=== PATIENT | female | born 1970 | race Caucasian/White ===

== ENCOUNTER 2018-06-17 15:08 | Emergency (ER) | payer BC, OTHER ==
[~2018-06-17] VITALS: Ht 170.2 cm; Wt 88.5 kg
--- NOTE | 2018-06-17 15:59 | NUR ---
Patient discharged to home in stable conditon. Written and verbal after care instructions given. Patient verbalizes understanding of instructions.PT WALKS IN STEADY GAIT. PT DENIES ANY DIZZINESS
== END 2018-06-17 16:00 | disposition home or self-care (01) ==
LOC: ER 15:08
DX: S00.03XA Contusion of scalp, initial encounter (principal); E03.9 Hypothyroidism, unspecified; Z90.89 Acquired absence of other organs; Y04.0XXA Assault by unarmed brawl or fight, initial encounter; Y93.89 Activity, other specified; Y92.89 Other specified places as the place of occurrence of the external cause; Y99.8 Other external cause status
CPT/HCPCS: 70450; A4663